=== PATIENT | male | born 1980 | race Caucasian/White ===

== ENCOUNTER 2016-10-07 10:30 | Emergency (ER) | payer BC ==
[~2016-10-07] VITALS: Ht 175.3 cm; Wt 90.7 kg
== END 2016-10-07 12:25 | disposition short-term general hospital (02) ==
LOC: ER 10:30 → RAD 10:33 → ER 10:33
PROC: 2W3JX1Z Immobilization of Right Finger using Splint (ICD-10-PCS; principal; 2016-10-07)
DX: S62.616A Displaced fracture of proximal phalanx of right little finger, initial encounter for closed fracture (principal); W22.8XXA Striking against or struck by other objects, initial encounter